=== PATIENT | female | born 2000 | race Caucasian/White ===

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

== ENCOUNTER 2023-11-07 10:42 | Outpatient (CLI) | payer MEDICAID | END 2023-11-07 23:59 | disposition home or self-care (01) | LOC: RAD 10:42 | PROVIDERS: ATTEND Physician Assistant | DX: O09.93 Supervision of high risk pregnancy, unspecified, third trimester (principal); Z3A.37 37 weeks gestation of pregnancy; Z97.5 Presence of (intrauterine) contraceptive device | CPT/HCPCS: 76805 ==